=== PATIENT | male | born 1980 | race Caucasian/White ===

== ENCOUNTER → 2016-08-19 | Outpatient (RCR) | payer BC | END | disposition home or self-care (01) | LOC: WSPT | DX: I89.0 Lymphedema, not elsewhere classified (principal) ==

== ENCOUNTER 2016-11-18 08:45 | Outpatient (RCR) | payer BC | END 2016-11-21 | disposition home or self-care (01) | LOC: WSPT | DX: I89.0 Lymphedema, not elsewhere classified (principal) ==

== ENCOUNTER 2017-02-17 09:00 | Outpatient (RCR) | payer BC | END 2017-02-20 | LOC: WSPT | DX: I89.0 Lymphedema, not elsewhere classified (principal); M25.511 Pain in right shoulder; M25.512 Pain in left shoulder; M54.2 Cervicalgia ==

== ENCOUNTER → 2017-04-11 | Outpatient (CLI) | payer BC | LOC: COL.RAD 09:08 | DX: K11.8 Other diseases of salivary glands (principal); R59.0 Localized enlarged lymph nodes; E89.0 Postprocedural hypothyroidism; Z98.890 Other specified postprocedural states | CPT/HCPCS: J7050; Q9967 ==